=== PATIENT | male | born 1965 | race Caucasian/White ===

== ENCOUNTER 2018-06-20 20:25 | Emergency (ER) | payer BC ==
--- NOTE | 2018-06-20 21:38 | ED ---
General Adult HPI - General Stated complaint: Chest Pain Time Seen by Provider: 06/20/18 21:37 - History of Present Illness Initial comments: Dictation was produced using [employer] dictation software. please excuse any grammatical, word or spelling errors. Chief Complaint: 66-year-old male presents with paresthesias to his body. History of Present Illness: Patient is 66-year-old male. He states she's been having paresthesias recently. Patient states today's paresthesias started in his foot and then traveled up his leg. Patient states he still couldn't walk and still felt pressure however felt tingling to his legs. Patient then reports that the paresthesias move up his leg and went into his right hand. Paresthesia s then went up to his face. Patient denied any motor or sensory deficit. Patient states he does feel some haziness in her head. That was like this in the past. Patient also has some tightness in his chest. He had a stress test is performed yesterday. He does not know the results of that yet. The ROS documented in this emergency department record has been reviewed and confirmed by me. Those systems with pertinent positive or negative responses have been documented in the HPI. All other systems are other negative and/or noncontributory. PHYSICAL EXAM: General Impression: Alert and oriented x3, not in acute distress HEENT: Normocephalic atraumatic, extra-ocular movements intact, pupils equal and reactive to light bilaterally, mucous membranes moist. Cardiovascular: Heart regular rate and rhythm, S1&S2 audible, no murmurs, rubs or gallops Chest: Lungs clear to auscultation bilaterally, no rhonchi, no wheeze, no rales Abdomen: Bowel sounds present, abdomen soft, non-tender, non-distended, no organomegaly Musculoskeletal: Pulses present and equal in all extremities, no peripheral edema Motor: no focal deficits noted Neurological: CN II-XII grossly intact, no focal motor or sensory deficits noted Skin: Intact with no visualized rashes Psych: Normal affect and mood ED course: 66-year-old male presents with chief complaint of paresthesias. Vital signs upon arrival are within acceptable limits. Patient has a NIH of 0. Clinically this is not consistent with CVA. Vital presentation is more suggestive of peripheral neuropathy. Laboratory evaluation obtained. CBC, metabolic panel, troponins, urinalysis is unremarkable. Patient was observed in emergency department with no issues. Patient does not have any electrolyte derangement. This point there is no clear etiology of patient's symptoms. Patient given referral to neurologist. He is told to follow up with his primary care physician regarding his symptoms. Return parameters discussed. Distended agreeable to disposition. EKG interpretation: Ventricular rate 78, normal sinus rhythm, NE interval 204, care is 106, QTC 421. No NE prolongation, no QTC prolongation, no ST or T-wave changes noted. No old EKG for comparison. Overall, this EKG is unremarkable - Related Data Home Medications Medication Instructions Recorded Confirmed Cholecalciferol [Vitamin D3] 1,000 unit PO DAILY 06/20/18 06/20/18 Allergies Allergy/AdvReac Type Severity Reaction Status Date / Time No Known Allergies Allergy Verified 06/20/18 21:51 Review of Systems ROS Statement: Those systems with pertinent positive or pertinent negative responses have been documented in the HPI. ROS Other: All systems not noted in ROS Statement are negative. Course Vital Signs 06/20/18 21:56 Temperature 98.4 F Pulse Rate 90 Respiratory 18 Rate Blood Pressure 141/87 O2 Sat by Pulse 99 Oximetry Medical Decision Making - Lab Data Result diagrams: 06/20/18 21:41 06/20/18 21:41 Lab Results 06/20/18 06/20/18 06/20/18 Range/Units 21:41 21:41 21:41 WBC 6.7 (3.8-10.6) k/uL RBC 4.96 (4.30-5.90) m/uL Hgb 14.9 (13.0-17.5) gm/dL Hct 44.2 (39.0-53.0) % MCV 89.1 (80.0-100.0) fL MCH 30.1 (25.0-35.0) pg MCHC 33.8 (31.0-37.0) g/dL RDW 13.2 (11.5-15.5) % Plt Count 237 (150-450) k/uL Neutrophils % 73 % Lymphocytes % 18 % Monocytes % 5 % Eosinophils % 2 % Basophils % 1 % Neutrophils # 4.9 (1.3-7.7) k/uL Lymphocytes # 1.2 (1.0-4.8) k/uL Monocytes # 0.3 (0-1.0) k/uL Eosinophils # 0.1 (0-0.7) k/uL Basophils # 0.1 (0-0.2) k/uL Sodium 141 (137-145) mmol/L Potassium 3.7 (3.5-5.1) mmol/L Chloride 106 (98-107) mmol/L Carbon Dioxide 24 (22-30) mmol/L Anion Gap 11 mmol/L BUN 13 (9-20) mg/dL Creatinine 0.92 (0.66-1.25) mg/dL Est GFR (CKD-EPI)AfAm >90 (>60 ml/min/1.73 sqM) Est GFR (CKD-EPI)NonAf >90 (>60 ml/min/1.73 sqM) Glucose 117 H (74-99) mg/dL Calcium 9.8 (8.4-10.2) mg/dL Magnesium 2.1 (1.6-2.3) mg/dL Troponin I <0.012 (0.000-0.034) ng/mL Urine Color Urine Appearance (Clear) Urine pH (5.0-8.0) Ur Specific [place] (1.001-1.035) Urine Protein (Negative) Urine Glucose (UA) (Negative) Urine Ketones (Negative) Urine Blood (Negative) Urine Nitrite (Negative) Urine Bilirubin (Negative) Urine Urobilinogen (<2.0) mg/dL Ur Leukocyte Esterase (Negative) 06/20/18 Range/Units 21:41 WBC (3.8-10.6) k/uL RBC (4.30-5.90) m/uL Hgb (13.0-17.5) gm/dL Hct (39.0-53.0) % MCV (80.0-100.0) fL MCH (25.0-35.0) pg MCHC (31.0-37.0) g/dL RDW (11.5-15.5) % Plt Count (150-450) k/uL Neutrophils % % Lymphocytes % % Monocytes % % Eosinophils % % Basophils % % Neutrophils # (1.3-7.7) k/uL Lymphocytes # (1.0-4.8) k/uL Monocytes # (0-1.0) k/uL Eosinophils # (0-0.7) k/uL Basophils # (0-0.2) k/uL Sodium (137-145) mmol/L Potassium (3.5-5.1) mmol/L Chloride (98-107) mmol/L Carbon Dioxide (22-30) mmol/L Anion Gap mmol/L BUN (9-20) mg/dL Creatinine (0.66-1.25) mg/dL Est GFR (CKD-EPI)AfAm (>60 ml/min/1.73 sqM) Est GFR (CKD-EPI)NonAf (>60 ml/min/1.73 sqM) Glucose (74-99) mg/dL Calcium (8.4-10.2) mg/dL Magnesium (1.6-2.3) mg/dL Troponin I (0.000-0.034) ng/mL Urine Color Colorless Urine Appearance Clear (Clear) Urine pH 6.5 (5.0-8.0) Ur Specific [place] 1.004 (1.001-1.035) Urine Protein Negative (Negative) Urine Glucose (UA) Negative (Negative) Urine Ketones Negative (Negative) Urine Blood Negative (Negative) Urine Nitrite Negative (Negative) Urine Bilirubin Negative (Negative) Urine Urobilinogen <2.0 (<2.0) mg/dL Ur Leukocyte Esterase Negative (Negative) Disposition Clinical Impression: Paresthesias Disposition: HOME SELF-CARE Condition: Good Instructions (If sedation given, give patient instructions): Paresthesia (ED) Is patient prescribed a controlled substance at d/c from ED?: No Referrals: Katy Casanova MD [Medical Doctor] - 1-2 days Time of Disposition: 22:55
--- NOTE | 2018-06-20 21:58 | XR ---
EXAMINATION: XR chest 2V DATE AND TIME: 06/20/2018 9:48 PM CLINICAL INDICATION: PHH; Pain TECHNIQUE: Departmental protocol COMPARISON: None FINDINGS: The lungs are clear. The pleural spaces are negative. The cardiac silhouette is not enlarged. The remainder of the mediastinal silhouette is unremarkable. The skeletal structures and soft tissues are negative for acute findings. IMPRESSION: NO ACUTE PROCESS.
[2018-06-20 21:59] VITALS: TEMP 98.4
[2018-06-20 22:06] LABS: Basophils # (A) 0.1 k/uL (0-0.2); Basophils % (A) 1 %; Eosinophils # (A) 0.1 k/uL (0-0.7); Eosinophils % (A) 2 %; HCT 44.2 % (39.0-53.0); HGB 14.9 gm/dL (13.0-17.5); Lymphocytes # (A) 1.2 k/uL (1.0-4.8); Lymphocytes % (A) 18 %; MCH 30.1 pg (25.0-35.0); MCHC 33.8 g/dL (31.0-37.0); MCV 89.1 fL (80.0-100.0); Mean Platelet Volume 7.7; Monocytes # (A) 0.3 k/uL (0-1.0); Monocytes % (A) 5 %; Neutrophils # (A) 4.9 k/uL (1.3-7.7); Neutrophils % (A) 73 %; Platelet Count 237 k/uL (150-450); RBC 4.96 m/uL (4.30-5.90); RDW 13.2 % (11.5-15.5); WBC 6.7 k/uL (3.8-10.6)
[2018-06-20 22:09] LABS: Appearance,Urine Clear (Clear); Bilirubin,Urine Negative (Negative); Blood,Urine Negative (Negative); Color,Urine Colorless; Glucose,Urine (UA) Negative (Negative); Ketones,Urine Negative (Negative); Leukocyte Esterase,Urine Negative (Negative); Nitrite,Urine Negative (Negative); PH, Urine 6.5 (5.0-8.0); Protein,Urine Negative (Negative); Specific Gravity,Urine 1.004 (1.001-1.035); Urobilinogen,Urine <2.0 mg/dL (<2.0)
[2018-06-20 22:21] LABS: Anion Gap 11 mmol/L; Blood Urea Nitrogen 13 mg/dL (9-20); Calcium 9.8 mg/dL (8.4-10.2); Carbon Dioxide 24 mmol/L (22-30); Chloride 106 mmol/L (98-107); Glucose 117 mg/dL (74-99); Magnesium 2.1 mg/dL (1.6-2.3); Potassium 3.7 mmol/L (3.5-5.1); Sodium 141 mmol/L (137-145)
[2018-06-20 23:09] VITALS: BP 132/89; PULSE 77; RESP 16
== END 2018-06-20 23:07 | disposition home or self-care (01) ==
LOC: EC 20:25 → SUPCPDRO 21:35 → EC 23:07
DX: R20.2 Paresthesia of skin (principal); R07.89 Other chest pain
CPT/HCPCS: 36415; 71046; 80048; 81003; 83735; 84484; 85025; 93005; 99285

== ENCOUNTER → 2018-08-28 | Outpatient (CLI) | payer BC ==
[2018-08-28 17:44] LABS: HCT 45.3 % (39.0-53.0); HGB 15.1 gm/dL (13.0-17.5); MCH 29.6 pg (25.0-35.0); MCHC 33.3 g/dL (31.0-37.0); MCV 88.7 fL (80.0-100.0); Mean Platelet Volume 7.6; Platelet Count 249 k/uL (150-450); RBC 5.11 m/uL (4.30-5.90); RDW 13.2 % (11.5-15.5)
[2018-08-28 17:53] LABS: African American GFR (CKD) >90 (>60 ml/min/1.73 sqM); Anion Gap 11 mmol/L; Blood Urea Nitrogen 15 mg/dL (9-20); Carbon Dioxide 25 mmol/L (22-30); Chloride 104 mmol/L (98-107); Sodium 140 mmol/L (137-145)
== END | disposition home or self-care (01) ==
LOC: LABPAT 16:46
PROVIDERS: ATTEND Internal Medicine Interventional Cardiology
DX: Z01.812 Encounter for preprocedural laboratory examination (principal)
CPT/HCPCS: 80051; 82565; 84520; 85027

== ENCOUNTER 2018-09-01 06:19 | Day surgery (SDC) | payer BC ==
[2018-08-30 08:14] VITALS: BMI 29.8
[2018-09-01] MEDS ORDERED: ALPRAZolam 0.25 MG TAB PO PRN (06:25)
[2018-09-01] MEDS ORDERED: ALPRAZolam 0.5 MG TAB PO PRN (06:25)
[2018-09-01] MEDS ORDERED: NITROGLYCERIN SL TABS 0.4 MG TAB SUBLINGUAL PRN (06:25)
[2018-09-01] MEDS ORDERED: ATORVASTATIN 80 MG TAB PO STA (06:25)
[2018-09-01] MEDS ORDERED: SODIUM CHLORIDE 0.9% 1,000 ML in EMPTY BAG 1 BAG IV ONE (06:25)
[2018-09-01] MEDS ORDERED: ASPIRIN 325 MG TAB PO STA (06:25)
[2018-09-01] MEDS ORDERED: LIDOCAINE 1% INJ 10MG/ML (20 ML MDV) ONE (07:12)
[2018-09-01] MEDS ORDERED: HEPARIN SODIUM 1,000 UN/ML (10ML VL) ONE (07:12)
[2018-09-01] MEDS ORDERED: VERAPAMIL 2.5 MG/ML 2 ML AMP ONE (07:12)
[2018-09-01] MEDS ORDERED: MIDAZOLAM (PF) 2 MG/2 ML VIAL IVP ONE ×2 (07:52→07:59)
[2018-09-01] MEDS ORDERED: LIDOCAINE 1% INJ 10MG/ML (20 ML MDV) SQ ONE ×2 (07:53→07:54)
[2018-09-01] MEDS ORDERED: VERAPAMIL SYRINGE (5 MG/10 ML) INTRAARTER ONE (07:55)
[2018-09-01] MEDS ORDERED: HEPARIN SODIUM 1,000 UN/ML (10ML VL) IV ONE (07:56)
[2018-09-01] MEDS ORDERED: fentaNYL (PF) 50 MCG/ML 2 ML AMP ONE (08:06)
[2018-09-01] MEDS ORDERED: fentaNYL (PF) 50 MCG/ML 2 ML AMP IVP ONE (08:08)
[2018-09-01] MEDS ORDERED: IOPAMIDOL-370 125ML BTL INJ ONE (08:09)
[2018-09-01] MEDS ORDERED: SODIUM CHLORIDE 0.9% 1,000 ML IV SCH (08:15)
[2018-09-01] MEDS ORDERED: RX INFO: IV CONTRAST WAS GIVEN 1 EACH MISC MISCELLANE PRN (08:15)
[2018-09-01 08:44] VITALS: RESP 18
--- NOTE | 2018-09-01 09:17 | CC ---
CARDIAC CATHETERIZATION REPORT DATE OF SERVICE: September 01, 2018. PERFORMING PHYSICIAN: Elia Falcon MD, seating upholsterer. PROCEDURE PERFORMED: 1. Selective right and left coronary angiogram. 2. Left heart catheterization. INDICATION: This is a 53-year-old gentleman with significant family history of coronary artery disease who was experiencing symptoms of chest discomfort concerning for angina. He underwent noninvasive testing and came in to be unremarkable, but he continues to be symptomatic and in view of that, a heart catheterization was advised. APPROACH: Right radial artery. COMPLICATION: None. LEVEL OF SEDATION: Moderate with sedation length of 12 minutes. PROCEDURE DESCRIPTION: After obtaining an informed consent, the patient was brought to the cardiac analytical lab analyst. The right radial artery was cannulated using micropuncture technique and a micropuncture wire passed easily then I placed a [id number] sheath in the right radial artery. After that I gave the patient 2 mg of verapamil IA and 10,000 units of heparin IV. Selective right and left coronary angiogram performed using JR4 and JL3 catheters. Left heart catheterization was performed using the JL4 catheter which crossed the aortic valve then I did pullback across aortic valve after I flushed the catheter and measured the LVEDP. The procedure was completed without any complication. SELECTIVE CORONARY ANGIOGRAM: 1. The right coronary artery is a large caliber vessel. It is a dominant vessel. The RCA is angiographically normal. It is tortuous in the midportion. It distally bifurcates into PDA and PLV branches both appeared to be angiographically normal. 2. The left main has a high takeoff from the aorta. It is a long left main. It bifurcates into left circumflex, ramus intermedius, and left anterior descending artery. 3. The left circumflex is a large caliber vessel. It is a nondominant vessel. The left circumflex is angiographically normal. In the proximal portion, it gives rise into a large OM branch which appeared to be angiographically normal. 4. The ramus intermedius is a large caliber vessel and seems to be angiographically normal. It trifurcates into 3 branches and all appeared to be normal. 5. The LAD: The proximal LAD appeared to be normal. The mid LAD appeared to be normal and gives rise into the first and second diagonal branches both appeared to be normal and the LAD distally appeared to be normal as well. HEMODYNAMICS: The left ventricular end-diastolic pressure was about 10 mmHg without significant gradient across aortic valve. CONCLUSION: 1. Normal coronary angiogram. 2. High takeoff of the left main from the ascending thoracic aorta. 3. I did use JL3 catheter to engage the left main coronary artery. POSTPROCEDURE MANAGEMENT: 1. Medical treatment. 2. Follow up with the patient. SOL / ALAN: [id number] /
--- NOTE | 2018-09-01 09:23 | LTR ---
September 01, 2018 Re: Benoit Suarez Dear Dr. Mariee: Mr. Benoit Suarez underwent today a coronary angiogram which revealed no evidence of coronary artery disease. I did reassure the patient after procedure and I recommended continuing following up with him. I want to thank you for allowing us to participate in his care and please do not hesitate to call if you have any questions or concerns. Sincerely, MD SOL Childers / ALAN: [id number] /
[2018-09-01 15:32] VITALS: BP 124/84; PULSE 70
== END 2018-09-01 13:24 | disposition home or self-care (01) ==
LOC: CATHCVL 06:19
PROVIDERS: ATTEND Internal Medicine Interventional Cardiology
DX: R07.89 Other chest pain (principal); R06.02 Shortness of breath; I10 Essential (primary) hypertension; F17.210 Nicotine dependence, cigarettes, uncomplicated; Z79.82 Long term (current) use of aspirin
CPT/HCPCS: 93458; J2001; J3010; J1644; Q9967; J2250

== ENCOUNTER → 2019-08-17 | Outpatient (CLI) | payer BC | END | disposition home or self-care (01) | LOC: LABWHC1 08:39 | PROVIDERS: ATTEND Family Medicine | DX: R05 Cough (principal); R50.9 Fever, unspecified ==